=== PATIENT | female | born 1995 | race Caucasian/White ===

== ENCOUNTER 2023-07-24 13:12 | Inpatient (IN) ==
[2023-07-24] MEDS: LACTATED RINGER'S 1,000 ML IV PRN ×3 (13:40→22:39)
[2023-07-24] MEDS ORDERED: OXYTOCIN 30 UNITS/NSS 30 UNITS/500 ML BAG IV PRN ×2 (14:00)
[2023-07-24] MEDS ORDERED: LIDOCAINE 1% LOCAL 20 ML VIAL INFIL PRN (14:00)
[2023-07-24 14:24] LABS: Hematocrit (blood only) 36.1 % (37.0-47.0); Hemoglobin 11.6 g/dl (12.0-16.0); Mean Corpuscular Hemoglobin 26.9 pg (25.0-34.0); Mean Corpuscular Hgb Conc 32.1 g/dL (32.0-36.0); Mean Corpuscular Volume 83.6 fL (80.0-100.0); Mean Platelet Volume 12.7 fL (9.4-12.4); Platelet Count 171 K/uL (130-400); RDW Coefficient of Variation 15.8 % (11.5-14.5); Red Blood Count 4.32 M/uL (4.20-5.40); White Blood Count 9.74 K/ul (4.8-10.8)
--- NOTE | 2023-07-24 15:01 | History & Physical Report ---
"Date of Service July 24, 2023 Assessment & Plan (1) Encounter for induction of labor: Plan Admit to L&D pitocin arom when appropriate monitor tracing, currently cat 1 Admission and Anticipated Discharge Date Admission Date: July 24, 2023 History of Present Illness Chief Complaint: IOL Primary Care Provider: LYDIA PCP 28 yo at 40w4d admitted for IOL for post dates. +ctx, +fm, +clear discharge, -VB, -LOF Denies PRIDE, CP, SOB, N/V/D, LE pain. GBS neg, RH+ Allergies Allergy/AdvReac Type Severity Reaction Status Date / Time amoxicillin Allergy Verified 07/23/23 11:08 Home Medications Medication Instructions Recorded Confirmed Type prenat.vits,nehal,ymu-fqzp-kaohz 1 tab PO 1XD 12/07/22 07/24/23 History Patient History Medical History (Updated 07/24/23 @ 15:00 by Lavell Kaur DO) Varicella vaccine No known problems Surgical History No pertinent past surgical history Family History Grandfather (Maternal) Diabetes Mother Laxmi's disease Denies family history of Ovarian cancer Prostate cancer Myocardial infarction Breast cancer Colorectal cancer Social History Smoking Status: Never smoker Second Hand Exposure: No; Do You Dip or Chew Tobacco: No; Hx Alcohol Use: No Hx Substance Use: No Preferred Language: [place]an Communication Ability: Effective Stitch Marker Required: No Beliefs That Will Affect Care: None marital status: marital status details: Ge Lozoya (26) Current Living Situation: Spouse Current Living Situation Comment: - Ge and 1 dog and 2 cats current occupational status: employed 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 Skin: warm, dry, intact HEENT: NC/AT, anicteric sclera, conjunctiva without injection, moist mucus membranes Heart: +S1/S2, regular, no m/r/g Lungs: equal air entry bilaterally, no rales/rhonchi/wheezes Abd: +BS, soft, NT/ND, gravid uterus Cervical: 2|50|-1| Ext: warm, no clubbing/cyanosis or edema Neuro: speech intact, no facial droop, moving all extremities on command. : FHR baseline 135, moderate variability, accelerations present, decelerations absent Results & Data Vital Signs (Past 12 Hours) Vital Signs Temp Pulse Resp BP 07/24/23 14:30 18 07/24/23 14:30 18 07/24/23 14:00 16 07/24/23 14:00 16 07/24/23 13:49 36.9 C 18 07/24/23 13:20 113 H 132/86 Supervising Physician Co-Signing Physician Notes Resident Physician Supervision Note: I interviewed and examined the patient. Discussed with Dr. Kaur and agree with findings and plan as documented in the note. Any exceptions or clarifications are listed here: [None] Documented By: Dianelys Lovell MD, FACOG Resident Activity Tracking Resident Involvement: Resident Care Provided Care Provided: Adult Hospital Medicine"
[2023-07-24] MEDS ORDERED: BUTORPHANOL TARTRATE 1 MG/ML VIAL IV PRN (20:29)
[2023-07-24] MEDS ORDERED: fentaNYL citrate PF 100 MCG/2 ML VIAL ONE (21:55)
[2023-07-24] MEDS ORDERED: fentANYL 2 MCG/ML BUPIVacaine 0.125%-NSS 100ML BAG ONE (21:56)
[2023-07-24] MEDS ORDERED: LIDOCAINE 2%/EPINEPHRINE 1:200,000 20 ML PF ONE (21:56)
[2023-07-24] MEDS ORDERED: ePHEDrine sulfate 50 MG/ML AMP ONE (21:56)
[2023-07-24] MEDS ORDERED: BUPIVACAINE 0.25% PF 30 ML VIAL ONE (21:56)
[2023-07-24] MEDS ORDERED: SODIUM CHLORIDE 0.9% PF INJ 10 ML VIAL ONE (21:56)
[2023-07-24] MEDS ORDERED: ePHEDrine sulfate 50 MG/ML AMP IV PRN (22:09)
[2023-07-24] MEDS ORDERED: NALBUPHINE HCL 5 MG in SYRINGE 0 ML IV PRN (22:09)
[2023-07-24] MEDS ORDERED: ROPIVACAINE 0.5% PF 5 MG/ML 20 ML VIAL EPI PRN (22:09)
[2023-07-24] MEDS ORDERED: BUPIVACAINE 0.25% PF 30 ML VIAL EPI PRN (22:09)
[2023-07-24] MEDS ORDERED: BUPIVACAINE 0.25% PF 30 ML VIAL EPI STA (22:09)
[2023-07-24] MEDS ORDERED: SODIUM CHLORIDE 0.9% PF INJ 10 ML VIAL EPI PRN (22:09)
[2023-07-24] MEDS ORDERED: fentaNYL citrate PF 100 MCG/2 ML VIAL EPI PRN (22:09)
[2023-07-24] MEDS ORDERED: fentaNYL citrate PF 100 MCG/2 ML VIAL EPI STA (22:09)
[2023-07-24] MEDS ORDERED: LIDOCAINE 2% MPF LOCAL 5 ML VIAL EPI PRN (22:09)
[2023-07-24] MEDS ORDERED: fentANYL 2 MCG/ML BUPIVacaine 0.125%-NSS 100ML BAG EPI PRN (22:09)
[2023-07-24] MEDS ORDERED: NALOXONE HCL 0.4 MG/1 ML VIAL/CARP IV PRN (22:09)
[2023-07-24] MEDS ORDERED: LIDOCAINE 2%/EPINEPHRINE 1:200,000 20 ML PF EPI STA (22:09)
[2023-07-24] MEDS ORDERED: NALOXONE HCL 1 MG in SODIUM CHLORIDE 0.9% 1,000 ML IV PRN (22:09)
[2023-07-24] MEDS ORDERED: diphenhydrAMINE 50 MG/ML VIAL IV PRN (22:09)
[2023-07-24] MEDS ORDERED: SODIUM CHLORIDE 0.9% PF INJ 10 ML VIAL EPI STA (22:09)
--- NOTE | 2023-07-24 22:09 | Anesthesiology Consultation ---
Date of Service July 24, 2023 Assessment & Plan (1) Encounter for pre-operative examination: Chart Review Chart Review: Patient NOT seen in Pre Admission Testing and Acceptable Risk for Labor Epidural Consults Requested none History Height/Weight Height: 5 ft 5 in Weight: 80.286 kg Allergies Allergy/AdvReac Type Severity Reaction Status Date / Time amoxicillin Allergy Verified 07/23/23 11:08 Medications Home Medications Medication Instructions Recorded Confirmed Last Taken prenat.vits,nehal,eeg-ztsi-dwvfb 1 tab PO 1XD 12/07/22 07/24/23 07/17/23 07:00 Active Medications Generic Name Dose Route Start Last Admin Trade Name Freq PRN Reason Stop Dose Admin Butorphanol Tartrate 1 mg 07/24/23 20:29 07/24/23 20:37 Butorphanol Tartrate 1 Mg/Ml Vial IV 08/23/23 20:28 1 mg Q2H PRN Administration Pain Oxytocin 30 units in 500 mls @ 22 mls/hr 07/24/23 14:00 07/24/23 20:30 Pitocin 30 Units/Nss IV 07/26/23 13:59 1.32 units/hr .[id number] PRN 22 mls/hr Labor Induction/Augmentation Titration Protocol 1.32 UNITS/HR Lactated Ringer's 1,000 mls @ 125 mls/hr 07/24/23 14:00 07/24/23 20:40 Lr IV 07/26/23 13:59 125 mls/hr .Q8H PRN Administration L&D Protocol Protocol Past Medical History Medical History Varicella vaccine No known problems Past Family History Family History Grandfather (Maternal) Diabetes Mother Laxmi's disease Denies family history of Ovarian cancer Prostate cancer Myocardial infarction Breast cancer Colorectal cancer Past Surgical History Surgical History No pertinent past surgical history Social History Smoking Status: Never smoker Do You Dip or Chew Tobacco: No Hx Alcohol Use: No Hx Substance Use: No Physical Exam Vital Signs Last Vital Signs Temp 98.6 F 07/24/23 19:08 Pulse 95 H 07/24/23 22:01 Resp 20 07/24/23 20:37 BP 105/65 07/24/23 21:36 Pulse Ox 100 07/24/23 22:01 Testing Laboratory Results 07/24/23 14:12
[2023-07-25] MEDS: LACTATED RINGER'S 1,000 ML IV PRN (04:27)
[2023-07-25] MEDS ORDERED: CLINDAMYCIN/D5W 900 MG/50 ML BAG IV SCH (06:00)
[2023-07-25] MEDS ORDERED: CITRIC ACID/SODIUM CITRATE 15 ML UDC PO SCH (06:00)
--- NOTE | 2023-07-25 10:29 | Labor Progress Brief Note ---
Date of Service July 25, 2023 Subjective Patient pushing for 2 hours without significant descent. Palpable position of LOP. Repositioning of mom to knee-chest and spinning babies positions has not changed her ability to move the baby, despite excellent effort. She is tired and considering other options. Assessment & Plan (1) Failure of descent in labor, delivered, current hospitalization: Plan Counseled patient on options including continued pushing, operative vaginal delivery, . After considering for a while she elects to move directly to section. Consent completed line by line at bedside, Carolyne CONRAD present. All questions answered. Anesthesiologist en route to hospital. Admission and Anticipated Discharge Date Admission Date: July 24, 2023 Physical Exam Genitourinary: 100/+1 LOP position Fluid stained FHT approp for Stage 2 during pushing, though with patient resting, a pattern of 160 mod pérez -acc +late decels is apparent. Results & Data Vital Signs (Past 12 Hours) Vital Signs Temp Pulse Resp BP Pulse Ox 07/25/23 10:20 98 H 100 07/25/23 10:15 104 H 100 07/25/23 10:13 108 H 112/65 07/25/23 10:10 106 H 99 07/25/23 10:05 108 H 100 07/25/23 10:02 110 H 90 07/25/23 10:00 102 H 20 99 07/25/23 09:57 107 H 115/60 07/25/23 09:55 90 100 07/25/23 09:53 93 H 93 07/25/23 09:50 141 H 98 07/25/23 09:47 105 H 91 07/25/23 09:45 127 H 100 07/25/23 09:40 113 H 97 07/25/23 09:35 118 H 95 07/25/23 09:30 121 H 20 98 07/25/23 09:25 125 H 99 07/25/23 09:20 134 H 97 07/25/23 09:16 125 H 93 07/25/23 09:15 90 98 07/25/23 09:12 87 107/53 L 07/25/23 09:10 82 97 07/25/23 09:07 129 H 93 07/25/23 09:05 107 H 96 07/25/23 09:00 98 H 20 97 07/25/23 08:55 100 H 98 07/25/23 08:50 136 H 98 07/25/23 08:46 20 07/25/23 08:46 98.6 F 20 07/25/23 08:45 125 H 98 07/25/23 08:42 127 H 115/58 L 07/25/23 08:40 142 H 95 07/25/23 08:35 99 H 97 07/25/23 08:31 79 90 07/25/23 08:30 90 20 97 07/25/23 08:28 78 100/58 L 07/25/23 08:25 100 H 97 07/25/23 08:20 90 07/25/23 08:20 120 H 07/25/23 08:20 93 H 91 07/25/23 08:15 108 H 97 07/25/23 08:14 146 H 88 L 07/25/23 08:10 91 H 98 07/25/23 08:09 129 H 89 L 07/25/23 08:05 120 H 97 07/25/23 08:02 117 H 110/54 L 07/25/23 08:00 135 H 20 98 07/25/23 07:55 130 H 98 07/25/23 07:50 91 H 97 07/25/23 07:45 108 H 97 07/25/23 07:42 125 H 107/58 L 07/25/23 07:40 100 H 97 07/25/23 07:35 91 H 96 07/25/23 07:30 98.8 F 110 H 16 96 07/25/23 07:27 99 H 115/65 07/25/23 07:25 95 H 96 07/25/23 07:20 93 H 95 07/25/23 07:15 114 H 97 07/25/23 07:13 91 H 109/56 L 07/25/23 07:10 104 H 96 07/25/23 07:05 86 96 07/25/23 07:00 87 96 07/25/23 06:56 99 H 107/58 L 07/25/23 06:55 95 H 95 07/25/23 06:50 102 H 95 07/25/23 06:45 89 94 07/25/23 06:44 102 H 104/55 L 07/25/23 06:40 94 H 96 07/25/23 06:35 88 96 07/25/23 06:30 83 95 07/25/23 06:28 96 H 108/59 L 07/25/23 06:25 97 H 97 07/25/23 06:20 97 H 96 07/25/23 06:15 81 96 07/25/23 06:13 93 H 104/55 L 07/25/23 06:10 92 H 97 07/25/23 06:05 76 96 07/25/23 06:00 87 97 07/25/23 05:57 83 107/52 L 07/25/23 05:55 76 97 07/25/23 05:50 93 H 98 07/25/23 05:45 101 H 100 07/25/23 05:40 89 98 07/25/23 05:35 91 H 100 07/25/23 05:34 108 H 93 07/25/23 05:30 72 100 07/25/23 05:27 70 95/54 L 07/25/23 05:25 70 100 07/25/23 05:20 79 100 07/25/23 05:15 81 100 07/25/23 05:13 79 104/58 L 07/25/23 05:10 80 100 07/25/23 05:06 99 H 93 07/25/23 05:05 92 H 97 07/25/23 05:03 98.4 F 83 18 93/54 L 07/25/23 05:00 99 07/25/23 05:00 88 07/25/23 05:00 67 80/42 L 07/25/23 04:59 75 86 L 07/25/23 04:57 72 95/48 L 07/25/23 04:55 67 99 07/25/23 04:50 96 H 96 07/25/23 04:45 87 95 07/25/23 04:42 93 H 106/56 L 07/25/23 04:41 92 H 94 07/25/23 04:40 92 H 94 07/25/23 04:35 92 H 94 07/25/23 04:34 94 H 94 07/25/23 04:30 92 H 94 07/25/23 04:29 111 H 93 07/25/23 04:25 88 95 07/25/23 04:20 94 07/25/23 04:20 102 H 07/25/23 04:20 98 H 94 07/25/23 04:15 102 H 94 07/25/23 04:12 90 104/53 L 07/25/23 04:10 95 H 94 07/25/23 04:09 91 H 94 07/25/23 04:05 102 H 94 07/25/23 04:00 87 93 07/25/23 03:59 96 H 104/52 L 07/25/23 03:57 88 94 07/25/23 03:55 91 H 94 07/25/23 03:51 93 H 94 07/25/23 03:50 93 H 96 07/25/23 03:45 94 07/25/23 03:45 88 07/25/23 03:45 83 94 07/25/23 03:43 89 98/50 L 07/25/23 03:40 88 94 07/25/23 03:37 94 H 94 07/25/23 03:35 88 94 07/25/23 03:32 83 94 07/25/23 03:30 83 94 07/25/23 03:27 85 07/25/23 03:27 74 104/55 L 94 07/25/23 03:25 91 H 95 07/25/23 03:20 84 96 07/25/23 03:15 82 96 07/25/23 03:13 77 104/56 L 07/25/23 03:10 79 98 07/25/23 03:05 81 96 07/25/23 03:03 16 07/25/23 03:03 98.4 F 16 07/25/23 03:00 106 H 97 07/25/23 02:56 80 94 07/25/23 02:55 78 95 07/25/23 02:50 96 07/25/23 02:50 75 07/25/23 02:50 79 94 07/25/23 02:45 76 97 07/25/23 02:43 78 97/52 L 07/25/23 02:40 77 96 07/25/23 02:35 83 98 07/25/23 02:30 76 96 07/25/23 02:28 79 97/54 L 07/25/23 02:25 74 97 07/25/23 02:20 76 98 07/25/23 02:15 77 97 07/25/23 02:12 72 104/51 L 07/25/23 02:10 79 98 07/25/23 02:05 83 98 07/25/23 02:00 76 99 07/25/23 01:57 78 115/52 L 07/25/23 01:55 76 98 07/25/23 01:50 81 99 07/25/23 01:45 80 99 07/25/23 01:41 18 07/25/23 01:41 98.2 F 18 07/25/23 01:40 75 98 07/25/23 01:37 72 90 07/25/23 01:35 76 100 07/25/23 01:34 63 90/51 L 07/25/23 01:30 84 100 07/25/23 01:25 76 95 07/25/23 01:22 72 94 07/25/23 01:20 89 96 07/25/23 01:15 81 96 07/25/23 01:11 82 110/56 L 07/25/23 01:10 81 96 07/25/23 01:05 79 97 07/25/23 01:00 99 H 98 07/25/23 00:59 83 92 07/25/23 00:56 84 108/56 L 07/25/23 00:55 79 98 07/25/23 00:52 87 92 07/25/23 00:50 76 96 07/25/23 00:45 94 07/25/23 00:45 87 07/25/23 00:45 86 93 07/25/23 00:41 82 107/56 L 07/25/23 00:40 91 07/25/23 00:40 81 07/25/23 00:40 86 92 07/25/23 00:35 93 07/25/23 00:35 80 07/25/23 00:35 78 93 07/25/23 00:30 80 95 07/25/23 00:29 80 94 07/25/23 00:26 82 98/55 L 07/25/23 00:25 75 96 07/25/23 00:20 83 97 07/25/23 00:15 76 97 07/25/23 00:11 83 103/59 L 07/25/23 00:10 83 97 07/25/23 00:05 84 97 07/25/23 00:00 79 97 07/24/23 23:57 83 108/58 L 07/24/23 23:55 84 98 07/24/23 23:51 16 07/24/23 23:51 98.4 F 16 07/24/23 23:50 85 100 07/24/23 23:45 81 100 07/24/23 23:42 79 100/56 L 07/24/23 23:40 82 100 07/24/23 23:35 76 100 07/24/23 23:30 76 99 07/24/23 23:27 83 94/51 L 07/24/23 23:25 88 98 07/24/23 23:20 82 98 07/24/23 23:15 79 98 07/24/23 23:12 84 105/55 L 07/24/23 23:10 86 98 07/24/23 23:05 91 H 98 07/24/23 23:00 89 98 07/24/23 22:55 86 98 07/24/23 22:54 98.1 F 96 H 18 112/61 07/24/23 22:50 94 H 100 07/24/23 22:49 86 108/65 07/24/23 22:45 89 100 07/24/23 22:42 94 H 99/57 L 07/24/23 22:40 97 H 18 95/55 L 97 07/24/23 22:38 90 95/55 L 07/24/23 22:36 90 106/62 07/24/23 22:35 91 H 16 97 07/24/23 22:34 91 H 104/64 07/24/23 22:31 88 104/55 L 07/24/23 22:30 91 H 18 98 07/24/23 22:28 91 H 125/63 Coding Level of Care Code None Diagnoses Failure of descent in labor, delivered, current hospitalization O62.2
[2023-07-25] MEDS ORDERED: LACTATED RINGER'S 1,000 ML IV SCH ×2 (10:30→12:00)
[2023-07-25] MEDS ORDERED: OXYTOCIN 10 UNITS/ML VIAL ONE (11:32)
[2023-07-25] MEDS ORDERED: ONDANSETRON INJ 2 MG/ML 2 ML VIAL ONE (11:32)
[2023-07-25] MEDS ORDERED: PHENYLEPHRINE HCL 10 MG/ML VIAL ONE (11:32)
[2023-07-25] MEDS ORDERED: MoRPHine SULFATE PF 1 MG/ML 10 ML AMP/VIAL ONE (11:32)
[2023-07-25] MEDS ORDERED: LIDOCAINE 2%/EPINEPHRINE 1:200,000 20 ML PF ONE (11:32)
[2023-07-25] MEDS ORDERED: NALOXONE HCL 0.08 MG in SYRINGE 1.8 ML IV PRN (11:35)
[2023-07-25] MEDS ORDERED: MoRPHine SULFATE PF 1 MG/ML 10 ML AMP/VIAL EPI ONE (11:35)
[2023-07-25] MEDS ORDERED: NALOXONE HCL 0.4 MG/1 ML VIAL/CARP IV PRN (11:35)
[2023-07-25] MEDS ORDERED: KETOROLAC 30 MG/ML VIAL IV PRN (11:35)
[2023-07-25] MEDS ORDERED: diphenhydrAMINE 50 MG/ML VIAL IV PRN (11:35)
[2023-07-25] MEDS ORDERED: NALBUPHINE HCL 5 MG in SYRINGE 0 ML IV PRN (11:35)
[2023-07-25] MEDS ORDERED: HYDROmorphone INJ 0.5 MG/0.5 ML SYR IV PRN (11:35)
[2023-07-25] MEDS ORDERED: PROMETHAZINE HCL 6.25 MG in SODIUM CHLORIDE 0.9% 50 ML IV PRN (11:35)
[2023-07-25] MEDS ORDERED: ePHEDrine sulfate 50 MG/ML AMP IV PRN (11:35)
[2023-07-25] MEDS ORDERED: NALOXONE HCL 1 MG in SODIUM CHLORIDE 0.9% 1,000 ML IV PRN (11:35)
[2023-07-25] MEDS ORDERED: LACTATED RINGER'S 500 ML IV PRN (11:35)
[2023-07-25] MEDS ORDERED: ONDANSETRON INJ 2 MG/ML 2 ML VIAL IV PRN (11:35)
[2023-07-25] MEDS ORDERED: SODIUM CHLORIDE 0.9% 1,000 ML IV SCH (11:45)
[2023-07-25] MEDS ORDERED: DC INTRASPINAL MORPHINE SCH (11:45)
[2023-07-25] MEDS ORDERED: NO NARCOTICS OR SEDATIVES SCH (11:45)
[2023-07-25] MEDS ORDERED: DIPHTHERIA/TETANUS/PERTUSSIS Vaccine (Tdap, Age 7+yrs) 0.5mL SYR/VL IM ONE (11:53)
[2023-07-25] MEDS ORDERED: MAGNESIUM HYDROXIDE SUSP 30 ML UDC PO PRN (11:53)
[2023-07-25] MEDS ORDERED: SENNA 8.6 MG TAB PO PRN (11:53)
[2023-07-25] MEDS ORDERED: BENZOCAINE 20% SPRY 85 APPLN/85 GM CAN EXT PRN (11:53)
[2023-07-25] MEDS ORDERED: HYDROCORTISONE ACETATE 25 MG SUPP PR PRN (11:53)
--- NOTE | 2023-07-25 11:53 | Operative Report ---
PG Post Operative Report Pre & Post Diagnosis Operation Date: 07/25/23 11:00 [facility] @ 40w5d Induction of Labor Failure to Descend I identified the patient and participated in the time-out.: Yes Procedure Operation Date: 07/25/23 11:00 1' Low Transverse section Surgeon Brinda Malhotra MD Roll Hauler PGY2 Natasha Estimated Blood Loss 600 Findings Consistent with Post-Op Diagnosis Specimens Placenta Cord blood Cord gases Anesthesia Type L&D Only Epidural Exists Complications none Disposition Accompanied Patient To Recovery: Yes Disposition: L&D Description of Procedure The patient was placed operating table in the supine position with a leftward tilt. She was prepped and draped in standard sterile fashion. The anesthetic was tested and found to be adequate. A time-out was held, identifying correct patient, procedure, positioning and preoperative antibiotics. There were no concerns. A Pfannenstiel skin incision was made with a knife and taken down to the underlying layer of fascia. The fascia was incised in the midline with the knife and taken out laterally with scissors. The superior edge of the fascial incision was grasped, elevated and dissected off the underlying rectus both superiorly and inferiorly. The muscles were bluntly in the midline. The peritoneum was entered bluntly. The incision was then stretched. The bladder retractor was placed. The vesicouterine peritoneum was identified, entered with scissors and taken out laterally with scissors. The bladder flap was created digitally. A hysterotomy incision was created transversely in the lower uterine segment, final entry being accomplished in a blunt manner with the spindraw operator's fingers. Stained amniotic fluid was encountered. The spindraw operator's hand was used to elevate the head, which was confirmed to be in LOP presentation, to the hysterotomy. The head was delivered using mild fundal pressure, and the shoulders and body followed without difficulty. The cord was clamped and cut and the infant was then handed off to the awaiting after school teacher. Cord blood was obtained. The placenta was Manually extracted. The uterus was exteriorized and cleared of all clot and debris with moistened laparotomy sponges. The hysterotomy incision was repaired in two layers, the first in a running locked layer, the second in an imbricating layer. The ovaries and tubes were seen to be normal bilaterally. The uterus was gently replaced in the abdomen, and the gutters were cleared of clot and debris. A final inspection of the hysterotomy revealed good hemostasis. The rectus muscles were allowed to reapproximate naturally. The fascia was then reapproximated with 1 Vicryl in a running nonlocked manner. The fascia was examined and found to be free of defect following closure. The subcutaneous tissue was copiously irrigated and reapproximated with 0-chromic, then the skin edges were closed with 4-0 monocryl in a subcuticular fashion. A dermabond dressing was applied. The espinal was found to be draining clear yellow urine at completion of the procedure. I attest to the content of the Intraoperative Record and any orders documented therein. Any exceptions are noted below. I attest to the content of the Intraoperative Record and any orders documented therein. Any exceptions are noted below.
[2023-07-25] MEDS ORDERED: OXYTOCIN 30 UNITS/LR 1,003 ML IV SCH (12:00)
--- NOTE | 2023-07-25 12:10 | Anesthesiology Progress Note ---
Date of Service July 25, 2023 Anesthesia Post Procedure Vital Signs Vital Signs: Temp Pulse Resp BP Pulse Ox 07/25/23 12:08 84 100 07/25/23 12:04 80 98/51 L 07/25/23 12:03 74 98 07/25/23 12:02 71 94/50 L 07/25/23 12:00 77 87/43 L 07/25/23 11:00 20 07/25/23 11:00 20 07/25/23 10:57 100 H 109/62 07/25/23 10:55 109 H 98 07/25/23 10:50 112 H 97 07/25/23 10:45 117 H 98 07/25/23 10:42 117 H 119/69 07/25/23 10:40 94 H 99 07/25/23 10:35 97 H 99 07/25/23 10:30 37.5 C 91 H 20 99 07/25/23 10:27 96 H 106/63 07/25/23 10:25 86 100 07/25/23 10:20 98 H 100 07/25/23 10:15 104 H 100 07/25/23 10:13 108 H 112/65 07/25/23 10:10 106 H 99 07/25/23 10:05 108 H 100 07/25/23 10:02 110 H 90 07/25/23 10:00 102 H 20 99 07/25/23 09:57 107 H 115/60 07/25/23 09:55 90 100 07/25/23 09:53 93 H 93 07/25/23 09:50 141 H 98 07/25/23 09:47 105 H 91 07/25/23 09:45 127 H 100 07/25/23 09:40 113 H 97 07/25/23 09:35 118 H 95 07/25/23 09:30 121 H 20 98 07/25/23 09:25 125 H 99 07/25/23 09:20 134 H 97 07/25/23 09:16 125 H 93 07/25/23 09:15 90 98 07/25/23 09:12 87 107/53 L 07/25/23 09:10 82 97 07/25/23 09:07 129 H 93 07/25/23 09:05 107 H 96 07/25/23 09:00 98 H 20 97 07/25/23 08:55 100 H 98 07/25/23 08:50 136 H 98 07/25/23 08:46 20 07/25/23 08:46 37.0 C 20 07/25/23 08:45 125 H 98 07/25/23 08:42 127 H 115/58 L 07/25/23 08:40 142 H 95 07/25/23 08:35 99 H 97 07/25/23 08:31 79 90 07/25/23 08:30 90 20 97 07/25/23 08:28 78 100/58 L 07/25/23 08:25 100 H 97 07/25/23 08:20 90 07/25/23 08:20 120 H 07/25/23 08:20 93 H 91 07/25/23 08:15 108 H 97 07/25/23 08:14 146 H 88 L 07/25/23 08:10 91 H 98 07/25/23 08:09 129 H 89 L 07/25/23 08:05 120 H 97 07/25/23 08:02 117 H 110/54 L 07/25/23 08:00 135 H 20 98 07/25/23 07:55 130 H 98 07/25/23 07:50 91 H 97 07/25/23 07:45 108 H 97 07/25/23 07:42 125 H 107/58 L 07/25/23 07:40 100 H 97 07/25/23 07:35 91 H 96 07/25/23 07:30 37.1 C 110 H 16 96 07/25/23 07:27 99 H 115/65 07/25/23 07:25 95 H 96 07/25/23 07:20 93 H 95 07/25/23 07:15 114 H 97 07/25/23 07:13 91 H 109/56 L 07/25/23 07:10 104 H 96 07/25/23 07:05 86 96 07/25/23 07:00 87 96 07/25/23 06:56 99 H 107/58 L 07/25/23 06:55 95 H 95 07/25/23 06:50 102 H 95 07/25/23 06:45 89 94 07/25/23 06:44 102 H 104/55 L 07/25/23 06:40 94 H 96 07/25/23 06:35 88 96 07/25/23 06:30 83 95 07/25/23 06:28 96 H 108/59 L 07/25/23 06:25 97 H 97 07/25/23 06:20 97 H 96 07/25/23 06:15 81 96 07/25/23 06:13 93 H 104/55 L 07/25/23 06:10 92 H 97 07/25/23 06:05 76 96 07/25/23 06:00 87 97 07/25/23 05:57 83 107/52 L 07/25/23 05:55 76 97 07/25/23 05:50 93 H 98 07/25/23 05:45 101 H 100 07/25/23 05:40 89 98 07/25/23 05:35 91 H 100 07/25/23 05:34 108 H 93 07/25/23 05:30 72 100 07/25/23 05:27 70 95/54 L 07/25/23 05:25 70 100 07/25/23 05:20 79 100 07/25/23 05:15 81 100 07/25/23 05:13 79 104/58 L 07/25/23 05:10 80 100 07/25/23 05:06 99 H 93 07/25/23 05:05 92 H 97 07/25/23 05:03 36.9 C 83 18 93/54 L 07/25/23 05:00 99 07/25/23 05:00 88 07/25/23 05:00 67 80/42 L 07/25/23 04:59 75 86 L 07/25/23 04:57 72 95/48 L 07/25/23 04:55 67 99 07/25/23 04:50 96 H 96 07/25/23 04:45 87 95 07/25/23 04:42 93 H 106/56 L 07/25/23 04:41 92 H 94 07/25/23 04:40 92 H 94 07/25/23 04:35 92 H 94 07/25/23 04:34 94 H 94 07/25/23 04:30 92 H 94 07/25/23 04:29 111 H 93 07/25/23 04:25 88 95 07/25/23 04:20 94 07/25/23 04:20 102 H 07/25/23 04:20 98 H 94 07/25/23 04:15 102 H 94 07/25/23 04:12 90 104/53 L 07/25/23 04:10 95 H 94 07/25/23 04:09 91 H 94 07/25/23 04:05 102 H 94 07/25/23 04:00 87 93 07/25/23 03:59 96 H 104/52 L 07/25/23 03:57 88 94 07/25/23 03:55 91 H 94 07/25/23 03:51 93 H 94 07/25/23 03:50 93 H 96 07/25/23 03:45 94 07/25/23 03:45 88 07/25/23 03:45 83 94 07/25/23 03:43 89 98/50 L 07/25/23 03:40 88 94 07/25/23 03:37 94 H 94 07/25/23 03:35 88 94 07/25/23 03:32 83 94 07/25/23 03:30 83 94 07/25/23 03:27 85 07/25/23 03:27 74 104/55 L 94 07/25/23 03:25 91 H 95 07/25/23 03:20 84 96 07/25/23 03:15 82 96 07/25/23 03:13 77 104/56 L 07/25/23 03:10 79 98 07/25/23 03:05 81 96 07/25/23 03:03 16 07/25/23 03:03 36.9 C 16 07/25/23 03:00 106 H 97 07/25/23 02:56 80 94 07/25/23 02:55 78 95 07/25/23 02:50 96 07/25/23 02:50 75 07/25/23 02:50 79 94 07/25/23 02:45 76 97 07/25/23 02:43 78 97/52 L 07/25/23 02:40 77 96 07/25/23 02:35 83 98 07/25/23 02:30 76 96 07/25/23 02:28 79 97/54 L 07/25/23 02:25 74 97 07/25/23 02:20 76 98 07/25/23 02:15 77 97 07/25/23 02:12 72 104/51 L 07/25/23 02:10 79 98 07/25/23 02:05 83 98 07/25/23 02:00 76 99 07/25/23 01:57 78 115/52 L 07/25/23 01:55 76 98 07/25/23 01:50 81 99 07/25/23 01:45 80 99 07/25/23 01:41 18 07/25/23 01:41 36.8 C 18 07/25/23 01:40 75 98 07/25/23 01:37 72 90 07/25/23 01:35 76 100 07/25/23 01:34 63 90/51 L 07/25/23 01:30 84 100 07/25/23 01:25 76 95 07/25/23 01:22 72 94 07/25/23 01:20 89 96 07/25/23 01:15 81 96 07/25/23 01:11 82 110/56 L 07/25/23 01:10 81 96 07/25/23 01:05 79 97 07/25/23 01:00 99 H 98 07/25/23 00:59 83 92 07/25/23 00:56 84 108/56 L 07/25/23 00:55 79 98 07/25/23 00:52 87 92 07/25/23 00:50 76 96 07/25/23 00:45 94 07/25/23 00:45 87 07/25/23 00:45 86 93 07/25/23 00:41 82 107/56 L 07/25/23 00:40 91 07/25/23 00:40 81 07/25/23 00:40 86 92 07/25/23 00:35 93 07/25/23 00:35 80 07/25/23 00:35 78 93 07/25/23 00:30 80 95 07/25/23 00:29 80 94 07/25/23 00:26 82 98/55 L 07/25/23 00:25 75 96 07/25/23 00:20 83 97 07/25/23 00:15 76 97 07/25/23 00:11 83 103/59 L 07/25/23 00:10 83 97 07/25/23 00:05 84 97 07/25/23 00:00 79 97 07/24/23 23:57 83 108/58 L 07/24/23 23:55 84 98 07/24/23 23:51 16 07/24/23 23:51 36.9 C 16 07/24/23 23:50 85 100 07/24/23 23:45 81 100 07/24/23 23:42 79 100/56 L 07/24/23 23:40 82 100 07/24/23 23:35 76 100 07/24/23 23:30 76 99 07/24/23 23:27 83 94/51 L 07/24/23 23:25 88 98 07/24/23 23:20 82 98 07/24/23 23:15 79 98 07/24/23 23:12 84 105/55 L 07/24/23 23:10 86 98 07/24/23 23:05 91 H 98 07/24/23 23:00 89 98 07/24/23 22:55 86 98 07/24/23 22:54 36.7 C 96 H 18 112/61 07/24/23 22:50 94 H 100 07/24/23 22:49 86 108/65 07/24/23 22:45 89 100 07/24/23 22:42 94 H 99/57 L 07/24/23 22:40 97 H 18 95/55 L 97 07/24/23 22:38 90 95/55 L 07/24/23 22:36 90 106/62 07/24/23 22:35 91 H 16 97 07/24/23 22:34 91 H 104/64 07/24/23 22:31 88 104/55 L 07/24/23 22:30 91 H 18 98 07/24/23 22:28 91 H 125/63 07/24/23 22:25 95 H 98 2223 22:20 99 H 98 07/24/23 22:15 90 98 2223 22:10 107 H 99 22 22:01 95 H 100 2223 21:58 85 91 22/23 21:56 86 100 23 21:51 93 H 95 2223 21:46 89 96 22/23 21:44 83 94 22/23 21:41 87 97 22/23 21:36 89 105/65 97 22/23 21:31 88 96 11/22/23 21:26 90 97 07/24/23 21:21 90 97 07/24/23 21:16 89 96 07/24/23 21:11 79 98 07/24/23 21:06 86 98 07/24/23 21:01 92 H 95 07/24/23 21:00 87 94 07/24/23 20:56 91 H 96 07/24/23 20:54 89 93 07/24/23 20:51 89 95 07/24/23 20:46 94 H 94 07/24/23 20:44 95 H 93 07/24/23 20:41 99 H 96 07/24/23 20:37 95 H 20 107/64 07/24/23 20:36 94 H 99 07/24/23 19:36 103 H 16 107/61 07/24/23 19:08 37.0 C 16 07/24/23 19:00 18 07/24/23 19:00 18 07/24/23 18:56 96 H 125/81 07/24/23 18:36 103 H 115/80 07/24/23 18:30 18 07/24/23 18:30 18 07/24/23 18:00 16 07/24/23 18:00 16 07/24/23 18:00 16 07/24/23 18:00 16 07/24/23 17:37 109 H 134/70 07/24/23 17:30 18 07/24/23 17:30 18 07/24/23 17:20 95 H 133/81 07/24/23 17:05 98 H 129/71 07/24/23 17:00 18 07/24/23 17:00 36.7 C 18 07/24/23 16:51 109 H 137/63 07/24/23 16:35 85 120/79 07/24/23 16:30 18 07/24/23 16:30 18 07/24/23 16:19 92 H 130/77 07/24/23 16:00 16 07/24/23 16:00 16 07/24/23 15:50 91 H 113/68 07/24/23 15:35 100 H 121/79 07/24/23 15:30 18 07/24/23 15:30 18 07/24/23 15:20 88 119/56 L 07/24/23 15:05 90 120/85 07/24/23 15:00 18 07/24/23 15:00 36.8 C 18 07/24/23 14:30 18 07/24/23 14:30 18 07/24/23 14:00 16 07/24/23 14:00 16 07/24/23 13:49 36.9 C 18 07/24/23 13:20 113 H 132/86 Transfer of Care Handoff Completed per policy Notes Mental Status: alert / awake / arousable and participated in evaluation Patient Amnestic to Procedure: No Nausea / Vomiting: adequately controlled Pain: adequately controlled Airway Patency, RR, SpO2: stable & adequate BP & HR: stable & adequate Hydration State: stable & adequate Neuraxial Anesthesia: was administered and sensory block is resolving Anesthetic Complications: no major complications apparent and Pt Satisfied with anesthetic care
--- NOTE | 2023-07-25 12:10 | Anesthesia Procedure Note ---
Date of Service July 25, 2023 Anesthesia Post Epidural Note Vital Signs Vital Signs: Temp Pulse Resp BP Pulse Ox 37.5 C 84 20 98/51 L 100 07/25/23 10:30 07/25/23 12:08 07/25/23 11:00 07/25/23 12:04 07/25/23 12:08 Notes Mental Status: alert / awake / arousable and participated in evaluation Patient Amnestic to Procedure: No Nausea / Vomiting: adequately controlled Pain: adequately controlled Airway Patency, RR, SpO2: stable & adequate BP & HR: stable & adequate Hydration State: stable & adequate Neuraxial Anesthesia: was administered and sensory block is resolving Anesthetic Complications: no major complications apparent and Pt Satisfied with anesthetic care Epidural: Removed without complications and With tip intact
[2023-07-25 12:20] LABS: Base Excess Cord Venous Blood -4.5 mEq/L (-7.7-1.9); Cord Venous Blood HCO3 21 mmol/L (18.4-26.8); Cord Venous Blood PCO2 40 mmHg (30.4-57.2); Cord Venous Blood PO2 36 mmHg (14.1-43.3); Cord Venous Blood pH 7.33 (7.20-7.44); O2 Saturation Cord Venous Bld 68.1 % (<68)
[2023-07-25] MEDS ORDERED: SODIUM CHLORIDE 0.9% 250 ML IV PRN (14:28)
--- NOTE | 2023-07-25 14:35 | Communication Note ---
Date of Service: July 25, 2023 I was contacted by ANAMARIA Barfield to notify me of update on this patient. She is noted to appear very pale since returning from the OR. Pulse is borderline tachycardia in 100-107 range, BP in 90-100/50-60 range. Additionally, Dr. Campos reportedly gave her a bolus of crystalloid and a dose of ephedrine prior to departing the unit. Urine output is good at 200cc since leaving the OR, and although urine is pink, it has been that way since prior to arrival in the OR (same color as it was during second stage of labor or possibly clearing a bit now). Fundus is firm and lochia is small. She is concerned about pale appearance. I came promptly to the room to examine the patient. She is comfortable except for a "mild dull ache" in lower abdomen c/w recent surgery. BP 102/52 and pulse 103 at the time of my arrival, she is lying supine and alert/oriented and smiling but pale compared to her appearance pre-op. Fundus is confirmed to be very firm and lochia minimal. No abdominal distention. No pain with belly palpation. Cecily pad mostly clean. Allen recently emptied. Discussed that I think EBL for this case was likely higher than estimated, and that anemia would not be unexpected. Stat H&H ordered and 2u T&C also ordered in case transfusion is merited, either now or when patient begins to be more mobile in the next 24 hours. Patient was counseled on the above and in agreement with labs and possible txfn. She will remain on L&D until the results are in and management plan is confirmed.
[2023-07-25 14:55] LABS: Hematocrit (blood only) 27.2 % (37.0-47.0); Hemoglobin 8.9 g/dl (12.0-16.0)
[2023-07-25] MEDS: DOCUSATE SODIUM 100 MG CAP PO SCH (21:36)
[2023-07-25] MEDS: SIMETHICONE 80 MG CHEW PO SCH (21:36)
[2023-07-25] MEDS ORDERED: LACTATED RINGER'S 500 ML IV ONE (23:27)
[2023-07-25 23:54] LABS: Hematocrit (blood only) 25.5 % (37.0-47.0); Hemoglobin 8.2 g/dl (12.0-16.0)
[2023-07-26] MEDS ORDERED: ONDANSETRON INJ 2 MG/ML 2 ML VIAL IV PRN (05:36)
[2023-07-26] MEDS ORDERED: PROMETHAZINE HCL 25 MG in SODIUM CHLORIDE 0.9% 50 ML IV PRN (05:36)
[2023-07-26] MEDS ORDERED: MEPERIDINE HCL 50 MG/ML CARP IV PRN (05:36)
[2023-07-26] MEDS ORDERED: KETOROLAC 30 MG/ML VIAL IV PRN (05:36)
[2023-07-26] MEDS ORDERED: diphenhydrAMINE 50 MG/ML VIAL IV PRN (05:36)
[2023-07-26] MEDS ORDERED: diphenhydrAMINE Capsule 25 MG CAP PO PRN (05:36)
--- NOTE | 2023-07-26 07:08 | Obstetrical Progress Note ---
Date of Service July 26, 2023 Assessment & Plan (1) Postoperative state: POD#1 from 1'LTCS for FTD, with LOP presentation. Patient noted to have anemia overnight but stable at 8.6 to 8.2 on recheck. This was checked due to pale countenance, borderline urine output, and tachycardia. However patient denies any lightheadedness or dizziness (both overnight and again this morning). She has no CP or SOB. And her pulse is improved significantly after a fluid bolus overnight. I had 2u pRBC T&C'ed for her postop but have not yet given any blood as she is tolerating her anemia well from the standpoint of her symptoms, and because the Hgb value hasn't gone below 8. However would have a very low t hreshold to administer it if she becomes symptomatic, tachycardia resumes, or urine output is low. Will sign out to oncoming MD this AM. Subjective Ambulation: limited ambulation (dangling legs; not OOB yet, as espinal just removed. No dizziness or lightheadedness with upright position) Voiding: no voiding problems (espinal just removed, no void yet) Passing Gas:: Yes Diet Tolerance:: regular diet Lochia:: Small Feeding Type:: breast feeding Current Pain Level(1-10): 1 Physical Exam Continues to appear pale compared to pre-delivery Constitutional WD/WN, vitals as above Eyes PERRL, conjunctivae normal, anicteric sclerae Neck normal visual inspection Respiratory normal respiratory effort and able to speak in complete sentences; no respiratory distress and no labored breathing Cardiovascular Rate/Rhythm: regular rate and regular rhythm Extremities: no edema Chest (Breasts) Chest: normal inspection of chest Gastrointestinal (Abdomen) Inspection/Auscultation: abdomen normal to inspection Soft, postgravid Psychiatric A+Ox3, euthymic affect Genitourinary OB Exam Abdomen: + fundal height Fundus: + firm and + relation to umbilicus (fundus at umbilicus); not tender Results & Data Vital Signs (Past 12 Hours) Vital Signs Temp Pulse Resp BP Pulse Ox O2 Del Method 07/26/23 05:07 16 91 07/26/23 04:05 16 91 07/26/23 04:05 98.6 F 98 H 16 105/68 91 Room Air 07/26/23 03:30 91 07/26/23 02:02 16 93 07/26/23 01:07 14 92 07/26/23 00:29 16 94 07/25/23 23:20 16 92 07/25/23 23:20 97.9 F 135 H 16 107/69 92 Room Air 07/25/23 22:00 16 97 07/25/23 20:18 16 97 07/25/23 19:24 98.2 F 111 H 18 107/65 95 Room Air 07/25/23 19:24 18 95
[2023-07-26 07:36] LABS: Basophils # (auto) 0.04 K/uL (0.00-0.20); Basophils % (auto) 0.3 %; Eosinophils # (auto) 0.05 K/uL (0.00-0.50); Eosinophils % (auto) 0.4 %; Hematocrit (blood only) 25.6 % (37.0-47.0); Hemoglobin 8.3 g/dl (12.0-16.0); Immature Granulocytes # (auto) 0.09 K/uL (0.01-0.20); Immature Granulocytes % (auto) 0.7 %; Lymphocytes # (auto) 1.03 K/uL (1.20-3.40); Lymphocytes % (auto) 8.5 %; Mean Corpuscular Hgb Conc 32.4 g/dL (32.0-36.0); Mean Corpuscular Volume 83.4 fL (80.0-100.0); Mean Platelet Volume 12.5 fL (9.4-12.4); Monocytes # (auto) 0.46 K/uL (0.11-0.59); Monocytes % (auto) 3.8 %; Neutrophils # (auto) 10.38 K/uL (1.40-6.50); Neutrophils % (auto) 86.3 %; Platelet Count 130 K/uL (130-400); RDW Standard Deviation 48.4 fL (36.4-46.3); Red Blood Count 3.07 M/uL (4.20-5.40); White Blood Count 12.05 K/ul (4.8-10.8)
[2023-07-26] MEDS: FERROUS SULFATE 325 MG TAB PO SCH (09:18)
[2023-07-26] MEDS: SIMETHICONE 80 MG CHEW PO SCH ×6 (09:18→21:19)
[2023-07-26] MEDS: DOCUSATE SODIUM 100 MG CAP PO SCH ×2 (09:18→21:17)
[2023-07-26] MEDS: PRENATAL VITAMIN 1 TAB PO SCH (09:18)
[2023-07-26] MEDS: IBUPROFEN 600 MG TAB PO PRN ×4 (09:19→21:18)
[2023-07-26] MEDS: oxyCODONE/ACETAMINOPHEN 5mg/325mg TAB PO PRN ×4 (09:19→21:18)
[2023-07-26] MEDS ORDERED: bisacodyL 5 MG TABEC PO SCH (20:00)
--- NOTE | 2023-07-27 07:58 | Obstetrical Progress Note ---
Date of Service July 27, 2023 Assessment & Plan (1) Postoperative state: (2) Encounter for assessment: Plan Overall doing well, repeat h/h pending this am but doing well and no s/s of need for transfusion. Still remains very slightly tachycardic. Plan continued routi ne pp/postop care. Day #:: 2 Subjective Ambulation: ambulating normally Voiding: no voiding problems Passing Gas:: Yes Diet Tolerance:: regular diet Lochia:: Small Feeding Type:: breast feeding Patient did well yesterday. Ambulated and moved around without any issues of dizziness and lightheadedness. IN fact she did so well, she may have "overdone it" a bit. She is feeling sore this am. Physical Exam Constitutional WD/WN, vitals as above Cardiovascular Extremities: + edema (tr); no calf tenderness Gastrointestinal (Abdomen) soft, nt, nd ff/appropriately tender 1 below u incision c/d/i Psychiatric A+Ox3, euthymic affect Results & Data Vital Signs (Past 12 Hours) Vital Signs Temp Pulse Resp BP Pulse Ox O2 Del Method 07/27/23 07:32 36.6 C 96 H 18 113/75 99 Room Air 07/27/23 00:14 36.6 C 109 H 16 108/70 Room Air
[2023-07-27] MEDS: PRENATAL VITAMIN 1 TAB PO SCH (08:08)
[2023-07-27] MEDS: DOCUSATE SODIUM 100 MG CAP PO SCH (08:08)
[2023-07-27] MEDS: FERROUS SULFATE 325 MG TAB PO SCH (08:08)
[2023-07-27] MEDS: oxyCODONE/ACETAMINOPHEN 5mg/325mg TAB PO PRN ×2 (08:09→15:22)
[2023-07-27] MEDS: SIMETHICONE 80 MG CHEW PO SCH ×2 (08:09→13:37)
[2023-07-27] MEDS: IBUPROFEN 600 MG TAB PO PRN ×2 (08:09→15:23)
[2023-07-27 09:47] LABS: Hematocrit (blood only) 25.9 % (37.0-47.0); Hemoglobin 8.3 g/dl (12.0-16.0)
[2023-07-27] MEDS ORDERED: bisacodyL 10 MG SUPP PR PRN (11:54)
== END 2023-07-27 15:26 | disposition home or self-care (01) | DRG 788 ==
LOC: 4S1 13:12 → 4E2 07-25 19:18